=== PATIENT | male | born 1935 | race African-American/Black ===

== ENCOUNTER 2016-12-07 15:28 | Inpatient (IN) ==
--- NOTE | 2016-12-07 15:53 | Emergency Department Note ---
Disposition Clinical Impression: Healthcare-associated pneumonia, Lactic acidosis, Severe sepsis Altered mental status Qualifiers: Altered mental status type: unspecified Qualified Code(s): R41.82 - Altered mental status, unspecified Disposition: Admitted As Inpatient Condition: Fair Referrals: NONE,PCP [Non-Partnered Physician] - Forms: ED Satisfaction Letter Altered Mental Status HPI - General Chief Complaint: ED Altered Mental Status Stated Complaint: unresponsive/AMS LKW 1130 Time Seen by Provider: 12/07/16 15:34 Source: family, EMS Mode of arrival: EMS Limitations: altered mental status Nursing Notes Reviewed: Yes Vital Signs Reviewed: Yes - History of Present Illness HPI Narrative: 81-year-old male history of lung, liver and brain lesions who presents to the ER due to altered mental status. Family reports that he was in his usual state of health this morning. States that after they had breakfast, or speaking that he became less responsive and was unable to help himself out of his wheelchair. She reports that he took Tylenol and something for hiccups prior to this happening. No recent illnesses. He was seen at the [facility] and treated with radiation for his brain lesion most recently last . No recent fevers. No nausea vomiting or diarrhea. No other complaints. MD complaint: altered mental status Onset (ago): hour(s) Pain Severity: none Context: liver disease, other (Lung mass) Associated symptoms: Reports: other (Unable to assess) - Related Data Home Medications Medication Instructions Recorded Confirmed Cholecalciferol (D-3) [Vitamin D] 1,000 unit PO DAILY 10/11/16 12/07/16 Cyanocobalamin (Vitamin B-12) 1,000 mcg PO DAILY 10/11/16 12/07/16 [Vitamin B12] Fexofenadine HCl 60 mg PO DAILY 10/11/16 12/07/16 Fluticasone/Salmeterol [Advair 1 puff IH BID 10/11/16 12/07/16 500-50 Diskus] Montelukast [Singulair] 10 mg PO DAILY 10/11/16 12/07/16 Acetaminophen [Tylenol] 650 mg PO Q6HR PRN 12/07/16 12/07/16 Baclofen [Lioresal] 5 mg PO Q8H PRN 12/07/16 12/07/16 Dexamethasone [Decadron] 8 mg PO TID 12/07/16 12/07/16 Docusate [Colace] 100 mg PO BID 12/07/16 12/07/16 Mag Hydrox/Al Hydrox/Simeth 30 ml PO Q6H PRN 12/07/16 12/07/16 [Antacid Suspension] Naproxen [Naprosyn] 500 mg PO BID 12/07/16 12/07/16 Pantoprazole Sodium [Protonix] 40 mg PO BID 12/07/16 12/07/16 levETIRAcetam [Keppra Oral Soln] 500 mg PO BID 12/07/16 12/07/16 Allergies Allergy/AdvReac Type Severity Reaction Status Date / Time venom-honey bee Allergy Swelling Verified 12/07/16 15:49 [bee venom (honey bee)] of the Eye Limitations: ROS unobtainable due to patients medical condition Past Medical History - Past Medical History Attestation: Yes The following information was validated with the patient. Source: old records reviewed, obtained from family Medical history: Reports: asthma, cancer Psychiatric history: Reports: no psych history - Social History Smoking Status: Never smoker Smokeless Tobacco Status: No Alcohol use: Reports: none Drug use: Reports: none Physical Exam - General Limitations: altered mental status General appearance: alert, other - Head Head exam: atraumatic, normocephalic, normal inspection - Eye Eye exam: Present: normal appearance, PERRL - ENT ENT exam: normal exam - Neck Neck exam: Present: normal inspection - Chest Chest inspection: Present: normal inspection, symmetric chest wall rise - Respiratory Respiratory exam: Present: normal lung sounds bilaterally - Cardiovascular Cardiovascular exam: Present: normal rhythm, tachycardia, normal heart sounds - Abdominal Exam Abdominal exam: Present: soft, Non-Tender. Absent: tenderness, distention, rigidity - Extremities Exam Extremities exam: Present: normal inspection, full ROM - Expanded Upper Extremity Exam Shoulder exam: Present: normal inspection, full ROM Arm exam: Present: normal inspection, full ROM Elbow exam: Present: normal inspection, full ROM Forearm/Wrist exam: Present: normal inspection, full ROM Hand exam: Present: normal inspection, full ROM Vascular exam: Normal: radial pulse - Expanded Lower Extremity Exam Hip/Pelvis exam: Present: normal inspection, full ROM Upper leg exam: Present: normal inspection, full ROM Knee exam: Present: normal inspection, full ROM Lower leg exam: Present: normal inspection, full ROM Ankle exam: Present: normal inspection Foot/toe exam: Present: normal inspection Neurovascular/Tendon exam: Absent: motor deficit, sensory deficit - Neurological Exam Neurological exam: Present: alert, other (Patient opens his eyes to voice. Decreased range of motion to the lower extremities. He is able to wiggle his toes and squeeze with his hands. Exam is limited due to patient compliance.) - Expanded Neurological Exam Motor strength - LUE: 4/5 Motor strength - RUE: 4/5 Motor strength - LLE: 4/5 Motor strength - RLE: 4/5 Coma Scale Eye Opening: To Voice Coma Scale Motor Response: Localizes to Pain Coma Scale Verbal Response: Incomprehensible Coma Scale Total: 10 - Skin Skin exam: Present: warm, dry, intact, normal color Course Course Narrative: Patient seen and examined. Vital signs reviewed. He is tachycardic here in the 120s. We will obtain a CT scan of the head as well as EKG, chest x-ray, labs and urinalysis. We will also check an ammonia level for his prior liver mass. - Reevaluation(s) Reevaluation #1: I discussed results of imaging and lab work to date with the patient and family. I discussed the findings of pneumonia and that he will require inpatient management for IV antibiotics and IV fluids. Family requests to stay here at this time. I also discussed with his significant other about CODE STATUS and she reports that she has had an extensive talk with him and that he is DNR, DNI. She reports that they do not want any heroic measures. Vital Signs Temperature 97.9 F 12/07/16 15:37 Pulse Rate 122 12/07/16 15:37 Respiratory Rate 26 12/07/16 15:37 Blood Pressure 151/76 12/07/16 15:37 O2 Sat by Pulse Oximetry 100 12/07/16 15:37 Temperature 97.9 F 12/07/16 15:37 Pulse Rate 109 12/07/16 18:00 Respiratory Rate 28 12/07/16 18:00 Blood Pressure 131/67 12/07/16 18:00 O2 Sat by Pulse Oximetry 100 12/07/16 18:00 Oxygen Delivery Oxygen Delivery Nasal Cannula Altered Mental Status - MDM Narrative Medical decision making narrative: 81-year-old male presents to the ER due to altered mental status. Reports that worsen this morning. He has a history of lung, liver and brain cancer. He has a GCS of 10 here. He was initially tachycardic which improved with IV fluids. Chest x-ray demonstrates a new right lower lobe pneumonia. He was hospitalized within the last 60 days and meets healthcare associated pneumonia criteria. His lactate is elevated at 5.3. White count is over 20. Patient given 2 L of IV fluids here as well as coverage including vancomycin, Zosyn and Levaquin. Patient is admitted to the hospitalist service for further management. I examined this patient and my medical decision-making was reviewed with the Resident Physician. I agree with the documented findings, disposition and treatment plan as described except to the extent set forth below. Patient seen and evaluated on arrival with EMS and Dr. Villegas, I agree with his evaluation and management plan, supravascular the patient's stay. Patient comes in with altered mental status. From nursing facility. 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 Waiting on family to arrival review his medical records he is not able to give us any history. He is very somnolent. His pupils are not small. I did do a workup CT of his head then reassess. Speak with family and review through his medical chart. He has no focal deficits here his GCS is 12. Patient's labs are coming back he has a leukocytosis lactic acid is high. I do not know where his source of infection may be or if this is truly septic or not pertinent treat him as such. At on a second lactic acid second fluid bolus and started him on IV antibiotics for unknown source of infection. Chest X-Ray 12/07/16 15:47 IMPRESSION: Stable right upper lobe mass is again noted. New patchy opacity in the right base, suspicious for pneumonia. There may be a parapneumonic effusion as well. Fullness of right hilum, possible adenopathy. D/ / Frantz St MD / Frantz St MD Interpreting Provider: Frantz St MD Chest X-Ray 12/07/16 15:47 IMPRESSION: Stable right upper lobe mass is again noted. New patchy opacity in the right base, suspicious for pneumonia. There may be a parapneumonic effusion as well. Fullness of right hilum, possible adenopathy. D/ / Frantz St MD / Frantz St MD Interpreting Provider: Frantz St MD Head CT 12/07/16 15:47 IMPRESSION: No acute intracranial abnormality. D/ / Angeli Samano Cha, MD / Angeli Samano Cha, MD Interpreting Provider: Angeli Samano Cha, MD 1734 hrs.: We started him on antibiotics for new pneumonia. He does. His labs to be septic. Repeat fluids lactic acid and admission. Nascimento catheter placed for her urinary collection. Patient be admitted. Family is in agreement with plan. Critical care time exclusive of separately billable procedures is 40 minutes. - Lab Data Lab results reviewed: Yes I reviewed the patient's lab results. Result diagrams: 12/07/16 16:28 12/07/16 16:28 Lab Results 12/07/16 12/07/16 12/07/16 Range/Units 15:56 16:28 16:28 WBC 23.0 H (4.3-11.1) K/mcL RBC 4.23 (4.19-5.50) M/mcL Hgb 12.1 L (12.9-16.9) g/dL Hct 37.8 (37.5-50.1) % MCV 89.4 (83.0-100.0) fL MCH 28.6 (28.0-33.3) pg MCHC 32.0 (31.6-35.5) g/dL RDW 16.4 H (11.5-14.5) % Plt Count 110 L (140-400) K/mcL MPV 11.4 (9.4-12.4) fL Immature Gran % 1.2 (0-4) % Seg Neutrophils % 89.7 % Lymphocytes % 1.7 % Monocytes % 7.3 % Eosinophils % 0.0 % Basophils % 0.1 % Neutrophils # 20.6 H (1.6-8.9) K/mcL Lymphocytes # 0.4 L (0.6-4.6) K/mcL Monocytes # 1.7 H (0.0-1.3) K/mcL Eosinophils # 0.0 (0.0-0.6) K/mcL Basophils # 0.0 (0.0-0.2) K/mcL Sodium 137 (136-145) mEq/L Potassium 4.5 (3.5-4.5) mEq/L Chloride 104 (98-109) mEq/L Carbon Dioxide 19 (19-29) mEq/L BUN 35 H (8-26) mg/dL Creatinine 1.06 (0.72-1.25) mg/dL Est GFR ( Amer) > 60 (> 60) Est GFR (Non-Af Amer) > 60 (> 60) BUN/Creatinine Ratio 33 H (6-26) Glucose 131 H (70-99) mg/dL POC Glucose 138 H (58-89) Calculated Osmolality 294 (280-300) Lactic Acid (0.5-2.2) mmol/L Calcium 9.6 (8.6-10.8) mg/dL Phosphorus 2.3 (2.3-4.7) mg/dL Magnesium 1.8 (1.6-2.6) mg/dL Total Bilirubin 0.7 (0.2-1.2) mg/dL Direct Bilirubin 0.4 (0.0-0.5) mg/dL Indirect Bilirubin 0.3 (0.0-1.2) mg/dL AST 92 H (5-34) Units/L ALT 27 (0-55) Units/L Alkaline Phosphatase 143 H (38-126) Units/L Ammonia (18-72) mcmol/L Troponin I (0-0.03) ng/mL Serum Total Protein 6.5 (6.0-8.3) g/dL Albumin 2.5 L (3.5-5.0) g/dL Globulin 4.0 H (2.4-3.5) g/dL Albumin/Globulin Ratio 0.6 L (1.1-2.2) TSH 2.782 (0.350-4.840) mcIU/mL Urine Color (Yellow) Urine Clarity (Clear) Urine pH (5.0-8.0) pH Units Ur Specific [place] (1.010-1.025) Urine Protein (Neg-Trace) mg/dL Urine Glucose (UA) (Normal) mg/dL Urine Ketones (Negative) mg/dL Urine Blood (Negative) Urine Nitrite (Negative) Urine Bilirubin (Negative) Urine Urobilinogen (Normal) mg/dL Ur Leukocyte Esterase (Negative) Urine Opiates Screen (Qjajep=659) ng/mL Ur Barbiturates Screen (Zxzipd=422) ng/mL Ur Phencyclidine Scrn (Cutoff=25) ng/mL Ur Amphetamines Screen (Uljbfg=0241) ng/mL U Benzodiazepines Scrn (Rabrgx=608) ng/mL Urine Cocaine Screen (Cutoff= 300) ng/mL U Marijuana (THC) Screen (Cutoff = 50) ng/mL 12/07/16 12/07/16 12/07/16 Range/Units 16:28 16:28 16:28 WBC (4.3-11.1) K/mcL RBC (4.19-5.50) M/mcL Hgb (12.9-16.9) g/dL Hct (37.5-50.1) % MCV (83.0-100.0) fL MCH (28.0-33.3) pg MCHC (31.6-35.5) g/dL RDW (11.5-14.5) % Plt Count (140-400) K/mcL MPV (9.4-12.4) fL Immature Gran % (0-4) % Seg Neutrophils % % Lymphocytes % % Monocytes % % Eosinophils % % Basophils % % Neutrophils # (1.6-8.9) K/mcL Lymphocytes # (0.6-4.6) K/mcL Monocytes # (0.0-1.3) K/mcL Eosinophils # (0.0-0.6) K/mcL Basophils # (0.0-0.2) K/mcL Sodium (136-145) mEq/L Potassium (3.5-4.5) mEq/L Chloride (98-109) mEq/L Carbon Dioxide (19-29) mEq/L BUN (8-26) mg/dL Creatinine (0.72-1.25) mg/dL Est GFR ( Amer) (> 60) Est GFR (Non-Af Amer) (> 60) BUN/Creatinine Ratio (6-26) Glucose (70-99) mg/dL POC Glucose (58-89) Calculated Osmolality (280-300) Lactic Acid 5.3 H* (0.5-2.2) mmol/L Calcium (8.6-10.8) mg/dL Phosphorus (2.3-4.7) mg/dL Magnesium (1.6-2.6) mg/dL Total Bilirubin (0.2-1.2) mg/dL Direct Bilirubin (0.0-0.5) mg/dL Indirect Bilirubin (0.0-1.2) mg/dL AST (5-34) Units/L ALT (0-55) Units/L Alkaline Phosphatase (38-126) Units/L Ammonia 24 (18-72) mcmol/L Troponin I 0.03 (0-0.03) ng/mL Serum Total Protein (6.0-8.3) g/dL Albumin (3.5-5.0) g/dL Globulin (2.4-3.5) g/dL Albumin/Globulin Ratio (1.1-2.2) TSH (0.350-4.840) mcIU/mL Urine Color (Yellow) Urine Clarity (Clear) Urine pH (5.0-8.0) pH Units Ur Specific [place] (1.010-1.025) Urine Protein (Neg-Trace) mg/dL Urine Glucose (UA) (Normal) mg/dL Urine Ketones (Negative) mg/dL Urine Blood (Negative) Urine Nitrite (Negative) Urine Bilirubin (Negative) Urine Urobilinogen (Normal) mg/dL Ur Leukocyte Esterase (Negative) Urine Opiates Screen (Xmvyma=513) ng/mL Ur Barbiturates Screen ([place]=575) ng/mL Ur Phencyclidine Scrn (Cutoff=25) ng/mL Ur Amphetamines Screen (Xlswsk=5645) ng/mL U Benzodiazepines Scrn (Xdahbx=626) ng/mL Urine Cocaine Screen (Cutoff= 300) ng/mL U Marijuana (THC) Screen (Cutoff = 50) ng/mL 12/07/16 12/07/16 Range/Units 17:53 17:53 WBC (4.3-11.1) K/mcL RBC (4.19-5.50) M/mcL Hgb (12.9-16.9) g/dL Hct (37.5-50.1) % MCV (83.0-100.0) fL MCH (28.0-33.3) pg MCHC (31.6-35.5) g/dL RDW (11.5-14.5) % Plt Count (140-400) K/mcL MPV (9.4-12.4) fL Immature Gran % (0-4) % Seg Neutrophils % % Lymphocytes % % Monocytes % % Eosinophils % % Basophils % % Neutrophils # (1.6-8.9) K/mcL Lymphocytes # (0.6-4.6) K/mcL Monocytes # (0.0-1.3) K/mcL Eosinophils # (0.0-0.6) K/mcL Basophils # (0.0-0.2) K/mcL Sodium (136-145) mEq/L Potassium (3.5-4.5) mEq/L Chloride (98-109) mEq/L Carbon Dioxide (19-29) mEq/L BUN (8-26) mg/dL Creatinine (0.72-1.25) mg/dL Est GFR ( Amer) (> 60) Est GFR (Non-Af Amer) (> 60) BUN/Creatinine Ratio (6-26) Glucose (70-99) mg/dL POC Glucose (58-89) Calculated Osmolality (280-300) Lactic Acid (0.5-2.2) mmol/L Calcium (8.6-10.8) mg/dL Phosphorus (2.3-4.7) mg/dL Magnesium (1.6-2.6) mg/dL Total Bilirubin (0.2-1.2) mg/dL Direct Bilirubin (0.0-0.5) mg/dL Indirect Bilirubin (0.0-1.2) mg/dL AST (5-34) Units/L ALT (0-55) Units/L Alkaline Phosphatase (38-126) Units/L Ammonia (18-72) mcmol/L Troponin I (0-0.03) ng/mL Serum Total Protein (6.0-8.3) g/dL Albumin (3.5-5.0) g/dL Globulin (2.4-3.5) g/dL Albumin/Globulin Ratio (1.1-2.2) TSH (0.350-4.840) mcIU/mL Urine Color Dark Yellow (Yellow) Urine Clarity Clear (Clear) Urine pH 5.5 (5.0-8.0) pH Units Ur Specific [place] 1.026 H (1.010-1.025) Urine Protein 30 H (Neg-Trace) mg/dL Urine Glucose (UA) Normal (Normal) mg/dL Urine Ketones Negative (Negative) mg/dL Urine Blood Moderate H (Negative) Urine Nitrite Negative (Negative) Urine Bilirubin Negative (Negative) Urine Urobilinogen Normal (Normal) mg/dL Ur Leukocyte Esterase Negative (Negative) Urine Opiates Screen Negative (Lymcll=491) ng/mL Ur Barbiturates Screen Negative (Sftaqo=101) ng/mL Ur Phencyclidine Scrn Negative (Cutoff=25) ng/mL Ur Amphetamines Screen Negative (Fmxdtl=0515) ng/mL U Benzodiazepines Scrn Negative (Deoiwz=524) ng/mL Urine Cocaine Screen Negative (Cutoff= 300) ng/mL U Marijuana (THC) Screen Negative (Cutoff = 50) ng/mL - Radiology Data Radiology results reviewed: Yes I reviewed the patient's radiology results. Chest X-Ray 12/07/16 15:47 IMPRESSION: Stable right upper lobe mass is again noted. New patchy opacity in the right base, suspicious for pneumonia. There may be a parapneumonic effusion as well. Fullness of right hilum, possible adenopathy. D/ / Frantz St MD / Frantz St MD Interpreting Provider: Frantz St MD Head CT 12/07/16 15:47 IMPRESSION: No acute intracranial abnormality. D/ / Angeli Samano Cha, MD / Angeli Samano Cha, MD Interpreting Provider: Angeli Samano Cha, MD - EKG Data EKG attestation: Yes I reviewed and interpreted this EKG. EKG results narrative: EKG demonstrates sinus tachycardia with a rate of 120. Normal axis. Normal intervals. There is [address] depression in the lateral leads V4 through V6. No gross ST elevations. Changes from previous EKG on 10/11/[address] depression in lateral leads. TPA Checklist - LKW: 3-4.5 hrs Add. Warnings/Precautions Patient/family understanding: The patient/family members have been counseled and understood the risk, benefit , and alternatives of treatment. S.Rosa - Shashi Situation: Demographics, MOA Background: Presenting Complaint, Relevant PMH, Meds, & Allergies Assessment: Vital Signs, Course and respsone to treatment, Exam Concerns, Patient/Family Expectation, Pertinant Lab Results, Outstanding Labs Recommendation: Barrier(s) to disposition, Recommendation based on pending studies, treatments, or consults S.Rosa Report Given to: Pk Danielle Repor Time: 18:22
[2016-12-07] MEDS ORDERED: 0.9 % Sodium Chloride 1,000 ML IVC ONE ×2 (15:59→17:00)
[2016-12-07 16:50] LABS: Basophils % 0.1 %; Hematocrit 37.8 % (37.5-50.1); Hemoglobin 12.1 g/dL (12.9-16.9); Immature Granulocytes % 1.2 % (0-4); Lymphocytes # 0.4 K/mcL (0.6-4.6); Lymphocytes % 1.7 %; Mean Corpuscular Hemoglobin 28.6 pg (28.0-33.3); Mean Corpuscular Volume 89.4 fL (83.0-100.0); Mean Platelet Volume 11.4 fL (9.4-12.4); Monocytes # 1.7 K/mcL (0.0-1.3); Monocytes % 7.3 %; Neutrophils # 20.6 K/mcL (1.6-8.9); Platelet Count 110 K/mcL (140-400); Red Blood Count 4.23 M/mcL (4.19-5.50); Red Cell Distribution Width 16.4 % (11.5-14.5); Segmented Neutrophils % 89.7 %
[2016-12-07] MEDS ORDERED: Vancomycin 1,000 MG in D5% in Water 250 ML IVPB ONE ×2 (17:00→17:08)
[2016-12-07] MEDS ORDERED: Piperacillin/Tazobactam 3.375 GM in D5% in Water (Mini-Bag+) 100 ML IVPB ONE (17:00)
[2016-12-07 17:09] LABS: Alanine Aminotransferase 27 Units/L (0-55); Albumin 2.5 g/dL (3.5-5.0); Albumin/Globulin Ratio 0.6 (1.1-2.2); Alkaline Phosphatase 143 Units/L (38-126); Aspartate Amino Transferase 92 Units/L (5-34); BUN/Creatinine Ratio 33 (6-26); Bilirubin,Direct 0.4 mg/dL (0.0-0.5); Bilirubin,Indirect 0.3 mg/dL (0.0-1.2); Bilirubin,Total 0.7 mg/dL (0.2-1.2); Blood Urea Nitrogen 35 mg/dL (8-26); Calcium 9.6 mg/dL (8.6-10.8); Carbon Dioxide 19 mEq/L (19-29); Chloride 104 mEq/L (98-109); Glucose 131 mg/dL (70-99); Osmolality,Calculated 294 (280-300); Potassium 4.5 mEq/L (3.5-4.5); Sodium 137 mEq/L (136-145); Total Protein 6.5 g/dL (6.0-8.3); eGFR For African Americans > 60 (> 60); eGFR For Non-African Americans > 60 (> 60)
[2016-12-07] MEDS ORDERED: Levofloxacin 750 MG/150 ML 750 MG/150 ML BAG IVPB ONE (17:13)
[2016-12-07 17:42] LABS: Thyroid Stimulating Hormone 2.782 mcIU/mL (0.350-4.840)
[2016-12-07 17:54] LABS: Magnesium 1.8 mg/dL (1.6-2.6); Phosphorous 2.3 mg/dL (2.3-4.7)
[2016-12-07 18:03] LABS: Bilirubin,Urine Negative (Negative); Blood,Urine Moderate (Negative); Clarity,Urine Clear (Clear); Color,Urine Dark Yellow (Yellow); Glucose,Urine (UA) Normal (Normal); Ketones,Urine Negative (Negative); Leukocyte Esterase,Urine Negative (Negative); Nitrite,Urine Negative (Negative); PH,Urine 5.5 pH Units (5.0-8.0); Protein,Urine 30 mg/dL (Neg-Trace); Specific Gravity,Urine 1.026 (1.010-1.025); Urobilinogen,Urine Normal (Normal)
[2016-12-07 18:05] LABS: Bacteria,Urine None Seen per hpf (None-Few); RBC,Urine 30-50 per hpf (0-3); Squamous Epithelial Cell,Urine Many per lpf (None-Few)
[2016-12-07 18:08] LABS: Amphetamine Screen,Urine Negative ng/mL (Cutoff=1000); Barbiturate Screen,Urine Negative ng/mL (Cutoff=200); Benzodiazepines Screen,Urine Negative ng/mL (Cutoff=200); Cannabinoid Screen,Urine Negative ng/mL (Cutoff = 50); Cocaine Screen,Urine Negative ng/mL (Cutoff= 300); Opiate Screen,Urine Negative ng/mL (Cutoff=300); Phencyclidine Screen,Urine Negative ng/mL (Cutoff=25)
[2016-12-07 18:18] LABS: Renal Epithelial Cells,Urine Few per hpf (None-Few)
[2016-12-07 18:19] LABS: Hyaline Casts,Urine Few per lpf (None-Few)
[2016-12-07] MEDS ORDERED: Baclofen 10 MG TABLET PO PRN (21:53)
[2016-12-07] MEDS ORDERED: Naloxone 0.4 MG/ML INJ IVP PRN (21:58)
[2016-12-07] MEDS ORDERED: Vancomycin 0 MG in D5% in Water 250 ML IVPB SCH (22:00)
--- NOTE | 2016-12-07 22:05 | Internal Med History&Physical ---
Date of Encounter: 12/07/16 Time of Encounter: 22:02 Assessment and Plan (1) Healthcare-associated pneumonia Current visit: Yes Status: Acute empiric IV vanc -pharmacy to dose, cefepime, IVF, blood cx, urine cx pend (2) Altered mental status Current visit: Yes Status: Acute related to severe sepsis and recent radiation to brain Qualifiers: Altered mental status type: unspecified Qualified Code(s): R41.82 - Altered mental status, unspecified (3) Lactic acidosis Current visit: Yes Status: Acute related to sepsis. Sepsis directed management (4) Severe sepsis Current visit: Yes Status: Acute (5) Metastatic cancer Current visit: Yes Status: Acute seen at [facility], recent XRT to brain (unsure of WBRT vs SRS), probably WBRT ? Slow dex taper Internal Medicine - H&P: HPI Chief complaint: AMS Admitted From: Home History of present illness: Mr. Belle is a 81 year old male who was recently dx with metastatic cancer ( unknown primary) who presents with sepsis resulting in AMS D/w case with ER who reported that per patient is DNR/DNI. It was reported that he had been recently dx with metastatic cancer to the lung , liver and brain and had been worked up and treated at [facility]. He recently completed palliative XRT to the brain last and had been on dex taper. He presents with acute AMS, decreased response today which led to his visit the ED. Sepsis screen suspicious for PNA and possible but less probable UTI as the primary source. EKG reviewed by self with rate 129, sinus tachycardia with PVC CT/CT head/brain wo con IMPRESSION: No acute intracranial abnormality. XR/XR chest 1V portable IMPRESSION: Stable right upper lobe mass is again noted. New patchy opacity in the right base, suspicious for pneumonia. There may be a parapneumonic effusion as well. Fullness of right hilum, possible adenopathy. Past Med Surg Social Fam HX - Past Medical History Medical history: asthma, cancer Psychiatric history: no psych history - Social History Smoking Status: Never smoker Smokeless Tobacco Status: No Alcohol use: none Drug use: none - Additional Family History Additional family history: HTN Internal Medicine - H&P: Meds Cholecalciferol (D-3) [Vitamin D] 1,000 unit PO DAILY 10/11/16 [History] Cyanocobalamin (Vitamin B-12) [Vitamin B12] 1,000 mcg PO DAILY 10/11/16 [History ] Fexofenadine HCl 60 mg PO DAILY 10/11/16 [History] Fluticasone/Salmeterol [Advair 500-50 Diskus] 1 puff IH BID 10/11/16 [History] Montelukast [Singulair] 10 mg PO DAILY 10/11/16 [History] Acetaminophen [Tylenol] 650 mg PO Q6HR PRN 12/07/16 [History] Baclofen [Lioresal] 5 mg PO Q8H PRN 12/07/16 [History] Dexamethasone [Decadron] 8 mg PO TID 12/07/16 [History] Docusate [Colace] 100 mg PO BID 12/07/16 [History] Mag Hydrox/Al Hydrox/Simeth [Antacid Suspension] 30 ml PO Q6H PRN 12/07/16 [ History] Naproxen [Naprosyn] 500 mg PO BID 12/07/16 [History] Pantoprazole Sodium [Protonix] 40 mg PO BID 12/07/16 [History] levETIRAcetam [Keppra Oral Soln] 500 mg PO BID 12/07/16 [History] 3 Allergy/AdvReac Type Severity Reaction Status Date / Time venom-honey bee Allergy Swelling Verified 12/07/16 15:49 [bee venom (honey bee)] of the Eye All Systems PM: A 10-system review of systems was performed and is negative for pertinent findings except as documented above in the HPI. Review of systems: ROS 14 point review of systems reviewed as best as possible given presentation. Pertinent positive or negative as per HPI or otherwise reviewed as negative - Constitutional Vitals: Temp Pulse Resp BP Pulse Ox 99.2 F 95 19 157/74 100 12/07/16 20:13 12/07/16 20:13 12/07/16 20:13 12/07/16 20:13 12/07/16 20:13 Internal Med - H&P Results - Labs CBC & Chem 7: 12/07/16 16:28 12/07/16 16:28
[2016-12-07] MEDS: 0.9 % Sodium Chloride 1,000 ML IVC SCH (23:25)
[2016-12-08] MEDS: *HR* Enoxaparin 30 MG/0.3 ML SYRINGE SQ SCH (05:25)
[2016-12-08] MEDS: Vancomycin 1,000 MG in D5% in Water 250 ML IVPB SCH ×2 (05:25→17:11)
[2016-12-08] MEDS: Cefepime HCl 2,000 MG in D5% in Water (Mini-Bag+) 100 ML IVPB SCH ×2 (05:25→17:10)
[2016-12-08] MEDS: Pantoprazole 40 MG VIAL IVP SCH (05:26)
[2016-12-08] MEDS: 0.9 % Sodium Chloride 1,000 ML IVC SCH ×2 (08:24→18:37)
[2016-12-08] MEDS: Dexamethasone 4 MG/ML VIAL IVP SCH ×2 (08:30→20:33)
[2016-12-08] MEDS ORDERED: levETIRAcetam 500 MG/5 ML UDC PO SCH (09:00)
[2016-12-08 09:03] LABS: Basophils % 0.1 %; Mean Corpuscular Volume 88.8 fL (83.0-100.0); Red Cell Distribution Width 16.3 % (11.5-14.5)
[2016-12-08 09:05] LABS: Eosinophils % 0.1 %; Hematocrit 27.8 % (37.5-50.1); Immature Platelets 1.7 % (1.1-6.1); Lymphocytes # 0.3 K/mcL (0.6-4.6); Lymphocytes % 2.2 %; Mean Corpuscular HGB Conc 31.3 g/dL (31.6-35.5); Mean Corpuscular Hemoglobin 27.8 pg (28.0-33.3); Mean Platelet Volume 10.7 fL (9.4-12.4); Monocytes # 1.4 K/mcL (0.0-1.3); Monocytes % 9.5 %; Neutrophils # 13.2 K/mcL (1.6-8.9); Red Blood Count 3.13 M/mcL (4.19-5.50); Segmented Neutrophils % 87.1 %
[2016-12-08 09:09] LABS: Platelet Count 70 K/mcL (140-400)
[2016-12-08 09:17] LABS: Alanine Aminotransferase 20 Units/L (0-55); Albumin/Globulin Ratio 0.6 (1.1-2.2); Alkaline Phosphatase 113 Units/L (38-126); Aspartate Amino Transferase 70 Units/L (5-34); BUN/Creatinine Ratio 27 (6-26); Bilirubin,Direct 0.5 mg/dL (0.0-0.5); Bilirubin,Indirect 0.4 mg/dL (0.0-1.2); Bilirubin,Total 0.9 mg/dL (0.2-1.2); Calcium 8.2 mg/dL (8.6-10.8); Carbon Dioxide 23 mEq/L (19-29); Chloride 105 mEq/L (98-109); Glucose 90 mg/dL (70-99); Hemoglobin 8.7 g/dL (12.9-16.9); Magnesium 1.3 mg/dL (1.6-2.6); Osmolality,Calculated 283 (280-300); Sodium 135 mEq/L (136-145); eGFR For African Americans > 60 (> 60); eGFR For Non-African Americans > 60 (> 60)
[2016-12-08 09:18] LABS: Albumin 1.9 g/dL (3.5-5.0); Blood Urea Nitrogen 22 mg/dL (8-26); Total Protein 4.9 g/dL (6.0-8.3)
[2016-12-08 09:36] LABS: Anisocytosis 1+ (Not Present); Platelet Estimate Decreased (Normal)
--- NOTE | 2016-12-08 11:40 | Internal Med Progress Note ---
Date of Encounter: 12/08/16 Time of Encounter: 11:15 - Assessment and plan (1) Pneumonia Current Visit: Yes Status: Suspected Assessment and plan: Patient with healthcare associated pneumonia. Treating with cefepime and vancomycin. Will get CT scan of the chest with contrast to better evaluate the pleural effusion. Continue to monitor vital signs. Follow culture results. Continue current antibiotics. High risk for complications due to underlying comorbidities. Qualifiers: Pneumonia type: due to other aerobic Gram-negative bacteria Laterality: right Lung location: lower lobe of lung Qualified Code(s): J15.6 - Pneumonia due to other aerobic Gram-negative bacteria (2) Healthcare-associated pneumonia Current Visit: Yes Status: Acute (3) Altered mental status Current Visit: Yes Status: Acute Assessment and plan: Improving. Likely related to healthcare associated pneumonia and recent radiation to brain. Qualifiers: Altered mental status type: delirium Qualified Code(s): R41.0 - Disorientation, unspecified (4) Lactic acidosis Current Visit: Yes Status: Resolved Assessment and plan: From sepsis and pneumonia. This has now resolved (5) Severe sepsis Current Visit: Yes Status: Acute Assessment and plan: From pneumonia. Improving clinically. WBC count is getting better. We will continue IV antibiotics. Lactic acidosis is resolved. Blood pressures remained good. (6) Metastatic cancer Current Visit: Yes Status: Chronic Assessment and plan: Metastatic cancer with unknown primary. Follow up outpatient with oncology - Subjective Interval history: Patient appears comfortable and is lying in bed. Awake and alert. Feels tired but denies any shortness of breath or chest pain. Has not had fever this morning. No new complaints at this time. - Constitutional Vitals: Temp Pulse Resp BP Pulse Ox 98.3 F 94 18 142/72 100 12/08/16 11:10 12/08/16 11:10 12/08/16 11:10 12/08/16 11:10 12/08/16 11:10 General appearance: Present: cooperative, A&O X 3, answers questions appropriately - Neck Neck exam general surgery: Present: supple, trachea midline. Absent: lymphadenopathy - Respiratory Respiratory exam: Present: decreased breath sounds (Right base). Absent: accessory muscle use, rales, rhonchi, wheezes - Cardiovascular Cardiovascular exam: Present: RRR, +S1, +S2. Absent: diastolic murmur, gallop, rubs, systolic murmur - GI/Abdominal GI/Abdominal exam: Present: normal bowel sounds, soft, no peritoneal signs. Absent: distended, tenderness - Extremities Exam Extremities exam: Present: warm, radial pulses palpable and symmetrical. Absent : calf tenderness, cyanotic, pedal edema - Skin Skin exam: Present: dry, intact Internal Medicine: Result - Labs CBC & Chem 7: 12/08/16 08:40 12/08/16 08:40 Labs: Short CBC 12/08/16 Range/Units 08:40 WBC 15.1 H (4.3-11.1) K/mcL Hgb 8.7 L D (12.9-16.9) g/dL Hct 27.8 L (37.5-50.1) % Plt Count 70 L (140-400) K/mcL Neutrophils # 13.2 H (1.6-8.9) K/mcL BMP 12/08/16 08:40 Sodium 135 L Potassium 4.0 Chloride 105 Carbon Dioxide 23 BUN 22 D Creatinine 0.82 Glucose 90 Calcium 8.2 L Liver Function 12/08/16 Range/Units 08:40 Total Bilirubin 0.9 (0.2-1.2) mg/dL Direct Bilirubin 0.5 (0.0-0.5) mg/dL AST 70 H (5-34) Units/L ALT 20 (0-55) Units/L Alkaline Phosphatase 113 (38-126) Units/L Albumin 1.9 L D (3.5-5.0) g/dL Consult Discharge Plan - Plan Referrals: Diana Coffey MD [Primary Care Provider] -
[2016-12-08] MEDS: Acetaminophen 325 MG TABLET PO PRN (18:43)
[2016-12-09] MEDS: 0.9 % Sodium Chloride 1,000 ML IVC SCH ×2 (01:21→13:54)
[2016-12-09 04:58] LABS: Immature Granulocytes % 0.7 % (0-4); Lymphocytes % 1.4 %
[2016-12-09 05:00] LABS: Basophils % 0.1 %; Hematocrit 28.4 % (37.5-50.1); Hemoglobin 8.8 g/dL (12.9-16.9); Immature Platelets 2.3 % (1.1-6.1); Lymphocytes # 0.2 K/mcL (0.6-4.6); Mean Corpuscular Hemoglobin 27.5 pg (28.0-33.3); Mean Corpuscular Volume 88.8 fL (83.0-100.0); Mean Platelet Volume 10.9 fL (9.4-12.4); Monocytes % 3.7 %; Neutrophils # 13.8 K/mcL (1.6-8.9); Segmented Neutrophils % 94.1 %
[2016-12-09 05:01] LABS: Monocytes # 0.5 K/mcL (0.0-1.3)
[2016-12-09 05:02] LABS: INR 1.8; Platelet Count 84 K/mcL (140-400); Prothrombin Time 20.1 Seconds (9.4-12.1)
[2016-12-09 05:14] LABS: Alanine Aminotransferase 20 Units/L (0-55); Albumin/Globulin Ratio 0.6 (1.1-2.2); Alkaline Phosphatase 116 Units/L (38-126); Aspartate Amino Transferase 50 Units/L (5-34); BUN/Creatinine Ratio 28 (6-26); Bilirubin,Direct 0.4 mg/dL (0.0-0.5); Bilirubin,Indirect 0.2 mg/dL (0.0-1.2); Bilirubin,Total 0.6 mg/dL (0.2-1.2); Blood Urea Nitrogen 26 mg/dL (8-26); Calcium 8.4 mg/dL (8.6-10.8); Carbon Dioxide 19 mEq/L (19-29); Chloride 107 mEq/L (98-109); Globulin 3.4 g/dL (2.4-3.5); Glucose 110 mg/dL (70-99); Magnesium 1.6 mg/dL (1.6-2.6); Osmolality,Calculated 287 (280-300); Potassium 4.4 mEq/L (3.5-4.5); Sodium 136 mEq/L (136-145); Total Protein 5.3 g/dL (6.0-8.3); eGFR For African Americans > 60 (> 60); eGFR For Non-African Americans > 60 (> 60)
[2016-12-09 05:18] LABS: Albumin 1.9 g/dL (3.5-5.0)
[2016-12-09] MEDS: Cefepime HCl 2,000 MG in D5% in Water (Mini-Bag+) 100 ML IVPB SCH ×2 (05:42→17:18)
[2016-12-09] MEDS: *HR* Enoxaparin 30 MG/0.3 ML SYRINGE SQ SCH (05:44)
[2016-12-09] MEDS: Pantoprazole 40 MG VIAL IVP SCH (06:18)
[2016-12-09] MEDS: Vancomycin 1,000 MG in D5% in Water 250 ML IVPB SCH ×2 (06:18→18:06)
[2016-12-09] MEDS: Dexamethasone 4 MG/ML VIAL IVP SCH ×2 (08:42→20:24)
--- NOTE | 2016-12-09 08:54 | Pulmonology Consult Note ---
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 CT scan shows progression of the disease with worsening lymphadenopathy . Patient has poor prognosis .[ (2) Pleural effusion Current Visit: Yes Status: Acute This loculated pleural effusion has increased in size most likely malignant effusion . Because of the presentation it is reasonable to do diagnostic thoracentesis will send pleural fluid analysis with culture and cytology because of loculated pleural effusion will consult IR for diagnostic thoracentesis .To continue IV antibiotics for now (3) Healthcare-associated pneumonia Current Visit: Yes Status: Acute Possible this presentation can be due to post obstructive pneumonia there is no compelling imaging evidence , these presentation can be explained with volume depletion and leukocytosis can be explained by steroid use . Reasonable to culture the pleural fluid make sure this is not the source of infection. History of Present Illness Consult date: 12/09/16 Requesting physician: Kosta Segundo Reason for consult: other (Pleural effusion ) Chief complaint: Altered mental status History of present illness: 81 year old male with past medical history significant for metastatic/primary bronchogenic malignancy? Since his care was done at [facility]. Awaiting records at this point. Per chart review patient has been treated with brain radiation for his brain metastasis and he was on steroids. Patient developed altered mental status was brought to the ER by his family Patient was evaluated work up and diagnosis was sepsis probable HCAP due to obstructive pneumonia patient was started on antibitoics , CT chest was done which showed RUL lung mass slightly reduced when compared to previous scan , but there is worsening mediastinal lymphadenopathy , other lung nodules found were also worsening in Size , patient is a poor historian doesnt know why he is here , denies any cough with sputum production, objectively patient didnt have any fevers. Pulmonary consulted for evaluation increase in size of the loculated pleural effusion. Past Med Surg Social Fam HX - Past Medical History Medical history: asthma, cancer Psychiatric history: no psych history - Social History Smoking Status: Never smoker Smokeless Tobacco Status: No Alcohol use: none Drug use: none Medications and Allergies Cholecalciferol (D-3) [Vitamin D] 1,000 unit PO DAILY 10/11/16 [History] Cyanocobalamin (Vitamin B-12) [Vitamin B12] 1,000 mcg PO DAILY 10/11/16 [History ] Fexofenadine HCl 60 mg PO DAILY 10/11/16 [History] Fluticasone/Salmeterol [Advair 500-50 Diskus] 1 puff IH BID 10/11/16 [History] Montelukast [Singulair] 10 mg PO DAILY 10/11/16 [History] Acetaminophen [Tylenol] 650 mg PO Q6HR PRN 12/07/16 [History] Baclofen [Lioresal] 5 mg PO Q8H PRN 12/07/16 [History] Dexamethasone [Decadron] 8 mg PO TID 12/07/16 [History] Docusate [Colace] 100 mg PO BID 12/07/16 [History] Mag Hydrox/Al Hydrox/Simeth [Antacid Suspension] 30 ml PO Q6H PRN 12/07/16 [ History] Naproxen [Naprosyn] 500 mg PO BID 12/07/16 [History] Pantoprazole Sodium [Protonix] 40 mg PO BID 12/07/16 [History] levETIRAcetam [Keppra Oral Soln] 500 mg PO BID 12/07/16 [History] 3 Allergy/AdvReac Type Severity Reaction Status Date / Time venom-honey bee Allergy Swelling Verified 12/07/16 15:49 [bee venom (honey bee)] of the Eye ROS unobtainable: due to mental status, other All Systems: 10 point review of systems patient denies anything positive , patient is a poor historian - Constitutional Constitutional: as per HPI - Cardiovascular Cardiovascular: no chest pain at rest - Respiratory Respiratory: as per HPI Physical Examination General appearance: no acute distress Eyes: nonicteric ENT: oropharynx moist Neck: no lymphadenopathy Effort: normal Auscultation: left: clear, right: diminished breath sounds Cardiovascular: regular rate and rhythm other (AX 2 follows commands ) tearful Results - Laboratory Findings CBC and BMP: 12/09/16 04:43 12/09/16 04:43 PT/INR, D-dimer PT 20.1 Seconds (9.4-12.1) H 12/09/16 04:43 Abnormal lab findings: Abnormal lab results WBC 14.7 K/mcL (4.3-11.1) H 12/09/16 04:43 RBC 3.20 M/mcL (4.19-5.50) L 12/09/16 04:43 Hgb 8.8 g/dL (12.9-16.9) L 12/09/16 04:43 Hct 28.4 % (37.5-50.1) L 12/09/16 04:43 MCH 27.5 pg (28.0-33.3) L 12/09/16 04:43 MCHC 31.0 g/dL (31.6-35.5) L 12/09/16 04:43 RDW 16.0 % (11.5-14.5) H 12/09/16 04:43 Plt Count 84 K/mcL (140-400) L 12/09/16 04:43 Neutrophils # 13.8 K/mcL (1.6-8.9) H 12/09/16 04:43 Lymphocytes # 0.2 K/mcL (0.6-4.6) L 12/09/16 04:43 Platelet Estimate Decreased (Normal) L 12/08/16 08:40 Anisocytosis 1+ (Not Present) A 12/08/16 08:40 PT 20.1 Seconds (9.4-12.1) H 12/09/16 04:43 BUN/Creatinine Ratio 28 (6-26) H 12/09/16 04:43 Glucose 110 mg/dL (70-99) H 12/09/16 04:43 POC Glucose 118 (58-89) H 12/08/16 20:20 Lactic Acid 2.4 mmol/L (0.5-2.2) H 12/09/16 04:43 Calcium 8.4 mg/dL (8.6-10.8) L 12/09/16 04:43 AST 50 Units/L (5-34) H 12/09/16 04:43 Serum Total Protein 5.3 g/dL (6.0-8.3) L 12/09/16 04:43 Albumin 1.9 g/dL (3.5-5.0) L 12/09/16 04:43 Albumin/Globulin Ratio 0.6 (1.1-2.2) L 12/09/16 04:43 Ur Specific [place] 1.026 (1.010-1.025) H 12/07/16 17:53 Urine Protein 30 mg/dL (Neg-Trace) H 12/07/16 17:53 Urine Blood Moderate (Negative) H 12/07/16 17:53 Urine Microscopic RBC 30-50 per hpf (0-3) H 12/07/16 17:53 Urine Microscopic WBC 5-15 per hpf (0-3) H 12/07/16 17:53 Ur Squamous Epith Cells Many per lpf (None-Few) H 12/07/16 17:53 Ur Culture Indicated? YES (NO) A 12/07/16 17:53 - Clinical Findings Intake & Output: Intake & Output 12/08/16 12/09/16 12/09/16 23:59 07:59 15:59 Intake Total 1560 / 1560 Output Total 650 / 650 Balance 1560 / 1560 -650 / -650 Weight 71.4 kg Consult Discharge Plan - Plan Referrals: Diana Coffey MD [Primary Care Provider] -
[2016-12-09] MEDS ORDERED: Furosemide 20 MG/2 ML VIAL IVP ONE ×2 (15:28→15:30)
--- NOTE | 2016-12-09 15:40 | Internal Med Progress Note ---
Date of Encounter: 12/09/16 Time of Encounter: 10:50 - Assessment and plan (1) Pneumonia Current Visit: Yes Status: Suspected Assessment and plan: Healthcare associated. On broad-spectrum antibiotics. Blood cultures have been negative. Moderate risk for complications due to underlying comorbidities and malignancy. CT scan of the chest done and shows loculated pleural effusion. Consulted pulmonology and appreciate recommendations. Will consult interventional radiology for diagnostic paracentesis. We will send pleural fluid for cytology Qualifiers: Pneumonia type: due to other aerobic Gram-negative bacteria Laterality: right Lung location: lower lobe of lung Qualified Code(s): J15.6 - Pneumonia due to other aerobic Gram-negative bacteria (2) Healthcare-associated pneumonia Current Visit: Yes Status: Acute (3) Altered mental status Current Visit: Yes Status: Acute Assessment and plan: Intermittent delirium remains but patient is redirectable. Continue supportive care and treat underlying conditions. Qualifiers: Altered mental status type: delirium Qualified Code(s): R41.0 - Disorientation, unspecified (4) Severe sepsis Current Visit: Yes Status: Acute Assessment and plan: Treating with broad-spectrum antibiotics. (5) Metastatic cancer Current Visit: Yes Status: Chronic Assessment and plan: Poor overall prognosis. Continue follow-up with oncology as outpatient. - Subjective Interval history: Patient feels better today. Denies shortness of breath. No chest pain. No fever or chills reported overnight. Saturating well on room air. - Constitutional Vitals: Temp Pulse Resp BP Pulse Ox 97.5 F L 88 18 120/68 97 12/09/16 11:31 12/09/16 11:31 12/09/16 11:31 12/09/16 11:31 12/09/16 11:31 General appearance: Present: cooperative, A&O X 2, no acute distress, answers questions appropriately - Eye Eye exam: Present: EOMI, PERRL, conjuntiva pink, sclera anicteric - Neck Neck exam general surgery: Present: supple, trachea midline. Absent: lymphadenopathy - Respiratory Respiratory exam: Present: decreased breath sounds (At right base), prolonged expiratory phase. Absent: accessory muscle use, rales, rhonchi, wheezes - Cardiovascular Cardiovascular exam: Present: RRR, +S1, +S2. Absent: diastolic murmur, gallop, rubs, systolic murmur - GI/Abdominal GI/Abdominal exam: Present: normal bowel sounds, soft, no peritoneal signs. Absent: distended, tenderness - Neurological Exam Neurological exam: Present: alert, no focal deficits, strengths equal and symetr throughout. Absent: facial droop, speech deficit Internal Medicine: Result - Labs CBC & Chem 7: 12/09/16 04:43 12/09/16 04:43 Labs: Short CBC 12/09/16 Range/Units 04:43 WBC 14.7 H (4.3-11.1) K/mcL Hgb 8.8 L (12.9-16.9) g/dL Hct 28.4 L (37.5-50.1) % Plt Count 84 L (140-400) K/mcL Neutrophils # 13.8 H (1.6-8.9) K/mcL BMP 12/09/16 04:43 Sodium 136 Potassium 4.4 Chloride 107 Carbon Dioxide 19 BUN 26 Creatinine 0.92 Glucose 110 H Calcium 8.4 L Liver Function 12/09/16 Range/Units 04:43 Total Bilirubin 0.6 (0.2-1.2) mg/dL Direct Bilirubin 0.4 (0.0-0.5) mg/dL AST 50 H (5-34) Units/L ALT 20 (0-55) Units/L Alkaline Phosphatase 116 (38-126) Units/L Albumin 1.9 L (3.5-5.0) g/dL - ABG Interpretation ABG results: PT/INR, D-dimer PT 20.1 Seconds (9.4-12.1) H 12/09/16 04:43 Consult Discharge Plan - Plan Referrals: Diana Coffey MD [Primary Care Provider] -
[2016-12-09] MEDS ORDERED: clonazePAM 0.5 MG TABLET PO PRN (17:08)
[2016-12-10 05:10] LABS: Hematocrit 27.3 % (37.5-50.1); Immature Granulocytes % 1.2 % (0-4); Lymphocytes # 0.3 K/mcL (0.6-4.6); Lymphocytes % 1.3 %; Mean Corpuscular Hemoglobin 28.9 pg (28.0-33.3); Mean Corpuscular Volume 87.8 fL (83.0-100.0); Mean Platelet Volume 10.6 fL (9.4-12.4); Platelet Count 115 K/mcL (140-400); Red Blood Count 3.11 M/mcL (4.19-5.50); Red Cell Distribution Width 16.2 % (11.5-14.5); Segmented Neutrophils % 92.5 %
[2016-12-10] MEDS: Cefepime HCl 2,000 MG in D5% in Water (Mini-Bag+) 100 ML IVPB SCH (05:14)
[2016-12-10] MEDS: *HR* Enoxaparin 30 MG/0.3 ML SYRINGE SQ SCH (05:14)
[2016-12-10 05:22] LABS: BUN/Creatinine Ratio 34 (6-26); Blood Urea Nitrogen 33 mg/dL (8-26); Calcium 8.5 mg/dL (8.6-10.8); Carbon Dioxide 21 mEq/L (19-29); Chloride 106 mEq/L (98-109); Glucose 102 mg/dL (70-99); Magnesium 1.6 mg/dL (1.6-2.6); Osmolality,Calculated 289 (280-300); Potassium 4.2 mEq/L (3.5-4.5); Sodium 136 mEq/L (136-145); eGFR For African Americans > 60 (> 60); eGFR For Non-African Americans > 60 (> 60)
[2016-12-10] MEDS: Vancomycin 1,000 MG in D5% in Water 250 ML IVPB SCH (06:05)
[2016-12-10] MEDS: Pantoprazole 40 MG VIAL IVP SCH (06:05)
--- NOTE | 2016-12-10 08:03 | Pulmonology Progress Note ---
Date of Encounter: 12/10/16 Time of Encounter: 07:10 Assessment and Plan (1) Pleural effusion Current Visit: Yes Status: Chronic I suspect this is chronic and most likely malignant. According to the nurse was taking care of the patient family does not want any procedures. Please call for any questions. (2) Metastatic cancer Current Visit: Yes Status: Chronic Subjective Principal diagnosis: Altered mental status Interval history: Patient denies any complaint Objective PUL Vital signs: Last Vital Signs Temp 98.7 F 12/10/16 04:58 Pulse 92 12/10/16 04:58 Resp 18 12/10/16 04:58 BP 135/74 12/10/16 04:58 Pulse Ox 97 12/10/16 04:58 General appearance: no acute distress ENT: oropharynx dry Neck: supple Effort: normal Auscultation: left: clear, right: diminished breath sounds Tactile fremitus: left: diminished, right: normal Cardiovascular: regular rate and rhythm Gastrointestinal: normoactive bowel sounds Extremities: no cyanosis, edema non-focal exam depressed Results - Laboratory Findings CBC and BMP: 12/10/16 04:38 12/10/16 04:38 PT/INR, D-dimer PT 20.1 Seconds (9.4-12.1) H 12/09/16 04:43 Abnormal lab findings: Abnormal lab results WBC 20.5 K/mcL (4.3-11.1) H 12/10/16 04:38 RBC 3.11 M/mcL (4.19-5.50) L 12/10/16 04:38 Hgb 9.0 g/dL (12.9-16.9) L 12/10/16 04:38 Hct 27.3 % (37.5-50.1) L 12/10/16 04:38 RDW 16.2 % (11.5-14.5) H 12/10/16 04:38 Plt Count 115 K/mcL (140-400) L 12/10/16 04:38 Neutrophils # 19.0 K/mcL (1.6-8.9) H 12/10/16 04:38 Lymphocytes # 0.3 K/mcL (0.6-4.6) L 12/10/16 04:38 Platelet Estimate Decreased (Normal) L 12/08/16 08:40 Anisocytosis 1+ (Not Present) A 12/08/16 08:40 PT 20.1 Seconds (9.4-12.1) H 12/09/16 04:43 BUN 33 mg/dL (8-26) H 12/10/16 04:38 BUN/Creatinine Ratio 34 (6-26) H 12/10/16 04:38 Glucose 102 mg/dL (70-99) H 12/10/16 04:38 POC Glucose 120 (58-89) H 12/09/16 20:54 Lactic Acid 2.4 mmol/L (0.5-2.2) H 12/09/16 04:43 Calcium 8.5 mg/dL (8.6-10.8) L 12/10/16 04:38 AST 50 Units/L (5-34) H 12/09/16 04:43 Serum Total Protein 5.3 g/dL (6.0-8.3) L 12/09/16 04:43 Albumin 1.9 g/dL (3.5-5.0) L 12/09/16 04:43 Albumin/Globulin Ratio 0.6 (1.1-2.2) L 12/09/16 04:43 Ur Specific [place] 1.026 (1.010-1.025) H 12/07/16 17:53 Urine Protein 30 mg/dL (Neg-Trace) H 12/07/16 17:53 Urine Blood Moderate (Negative) H 12/07/16 17:53 Urine Microscopic RBC 30-50 per hpf (0-3) H 12/07/16 17:53 Urine Microscopic WBC 5-15 per hpf (0-3) H 12/07/16 17:53 Ur Squamous Epith Cells Many per lpf (None-Few) H 12/07/16 17:53 Ur Culture Indicated? YES (NO) A 12/07/16 17:53 - Diagnostic Findings CT scan - chest: report reviewed, image reviewed - Clinical Findings Intake & Output: Intake & Output 12/09/16 12/10/16 12/10/16 23:59 07:59 15:59 Intake Total 470 / 470 Output Total 1650 / 1650 Balance -1180 / -1180 Weight 72.5 kg Consult Discharge Plan - Plan Referrals: Diana Coffey MD [Primary Care Provider] -
--- NOTE | 2016-12-10 10:11 | Palliative - Consult Note ---
<Fred Babcock - Last Filed: 12/10/16 10:06> Date of Encounter: 12/10/16 Time of Encounter: 10:06 - Assessment and Plan (1) Goals of care, counseling/discussion Current Visit: Yes Status: Acute Assessment and plan: Patient is currently requesting no further treatment besides his antibiotics, he adamantly does not want any further Cancer therapy or invasive procedures including thoracentesis. Patient's is Power of [employer] St[employer]. Code status is DNR/CCA/DNI. Discussed with patient and hospice options, but currently only request home health. Patient currently qualifies for hospice due to withdrawal of cancer treatment. will continue to follow patient. currently no ADL's on record, patient's will bring ADL's to the hospice. (2) Healthcare-associated pneumonia Current Visit: Yes Status: Acute Assessment and plan: Patient declines throacentesis, and patient requests to continue antibiotics. (3) Altered mental status Current Visit: Yes Status: Acute Assessment and plan: Continue supportive care. Qualifiers: Altered mental status type: delirium Qualified Code(s): R41.0 - Disorientation, unspecified (4) Metastatic cancer Current Visit: Yes Status: Chronic Assessment and plan: Patient and decline continued Cancer Treatments (5) Pleural effusion Current Visit: Yes Status: Chronic Assessment and plan: Patient declines thoracentesis. Palliative-CN HPI - Data of Consult Patient: new to practice Consult date: 12/10/16 Requesting Physician: Kosta Segundo MD [facility] Consult Narrative Palliative Care/Comfort Measures: Hospice care Reason for consult: Goals of care/hopsice qualifications History of present illness: Mr. Belle is a 81 year old male with pneumonia and hx of metastatic Cancer that has spread to his brain last treated at the [facility] on . Patient says he' s "uncomfortable but there's nothing you can do about it", He states that he's ok with his discomfort. He denies being in pain. He states that he no longer wants invasive treatments and is no longer interested in radiation treatment for his cancer. CC: Kosta Segundo MD Past Med Surg Social Fam HX - Past Medical History Medical history: asthma, cancer Psychiatric history: no psych history - Social History Smoking Status: Never smoker Smokeless Tobacco Status: No Alcohol use: none Drug use: none Medications and Allergies Cholecalciferol (D-3) [Vitamin D] 1,000 unit PO DAILY 10/11/16 [History] Cyanocobalamin (Vitamin B-12) [Vitamin B12] 1,000 mcg PO DAILY 10/11/16 [History ] Fexofenadine HCl 60 mg PO DAILY 10/11/16 [History] Fluticasone/Salmeterol [Advair 500-50 Diskus] 1 puff IH BID 10/11/16 [History] Montelukast [Singulair] 10 mg PO DAILY 10/11/16 [History] Acetaminophen [Tylenol] 650 mg PO Q6HR PRN 12/07/16 [History] Baclofen [Lioresal] 5 mg PO Q8H PRN 12/07/16 [History] Dexamethasone [Decadron] 8 mg PO TID 12/07/16 [History] Docusate [Colace] 100 mg PO BID 12/07/16 [History] Mag Hydrox/Al Hydrox/Simeth [Antacid Suspension] 30 ml PO Q6H PRN 12/07/16 [ History] Naproxen [Naprosyn] 500 mg PO BID 12/07/16 [History] Pantoprazole Sodium [Protonix] 40 mg PO BID 12/07/16 [History] levETIRAcetam [Keppra Oral Soln] 500 mg PO BID 12/07/16 [History] 3 Allergy/AdvReac Type Severity Reaction Status Date / Time venom-honey bee Allergy Swelling Verified 12/07/16 15:49 [bee venom (honey bee)] of the Eye Palliative Care-Exam - Constitutional Vitals: Temp Pulse Resp BP Pulse Ox 98.1 F 87 22 140/76 97 12/10/16 08:30 12/10/16 08:30 12/10/16 08:30 12/10/16 08:30 12/10/16 08:30 General appearance: Present: cooperative, mild distress - Respiratory Additional comments: shallow breathing. - Cardiovascular Cardiovascular exam: Present: RRR Internal Medicine - CN: Reslt - Labs CBC & Chem 7: 12/10/16 04:38 12/10/16 04:38 Labs: Short CBC 12/10/16 Range/Units 04:38 WBC 20.5 H (4.3-11.1) K/mcL Hgb 9.0 L (12.9-16.9) g/dL Hct 27.3 L (37.5-50.1) % Plt Count 115 L (140-400) K/mcL Neutrophils # 19.0 H (1.6-8.9) K/mcL BMP 12/10/16 04:38 Sodium 136 Potassium 4.2 Chloride 106 Carbon Dioxide 21 BUN 33 H Creatinine 0.98 Glucose 102 H Calcium 8.5 L - ABG Interpretation ABG results: PT/INR, D-dimer PT 20.1 Seconds (9.4-12.1) H 12/09/16 04:43 Consult Discharge Plan - Plan Referrals: [facility] [Other] (They are located beside of [facility]) Palliative Quality Palliative Quality: Screen for Code Status: Yes, Screen for Goals of Care: Yes, Screen for Pain: Yes, If Pain Regimen Started, Initiate Bowel Regimen: NA, Screen for Nausea/Vomitting: NA Code Status: 12/07/16 21:58 Resuscitation Status: Active [RES] Routine Comment: Resuscitation Status: [id number] <Law Del Cid L - Last Filed: 12/10/16 11:59> Date of Encounter: 12/10/16 Palliative-CN HPI - Data of Consult Requesting Physician: Kosta Segundo MD Primary Care Provider: Az Hammer - Consult Narrative History of present illness: Mr. Belle is a 81 year old male CC: Kosta Segundo MD Palliative Care-Exam - Constitutional Vitals: Temp Pulse Resp BP Pulse Ox 98.6 F 94 22 139/71 97 12/10/16 11:18 12/10/16 11:18 12/10/16 11:18 12/10/16 11:18 12/10/16 11:18 Internal Medicine - CN: Reslt - Labs CBC & Chem 7: 12/10/16 04:38 12/10/16 04:38 Labs: Short CBC 12/10/16 Range/Units 04:38 WBC 20.5 H (4.3-11.1) K/mcL Hgb 9.0 L (12.9-16.9) g/dL Hct 27.3 L (37.5-50.1) % Plt Count 115 L (140-400) K/mcL Neutrophils # 19.0 H (1.6-8.9) K/mcL BMP 12/10/16 04:38 Sodium 136 Potassium 4.2 Chloride 106 Carbon Dioxide 21 BUN 33 H Creatinine 0.98 Glucose 102 H Calcium 8.5 L - ABG Interpretation ABG results: PT/INR, D-dimer PT 20.1 Seconds (9.4-12.1) H 12/09/16 04:43 - Attending Attestation I examined this patient and my medical decision-making was reviewed with the Resident Physician. I agree with the documented findings, disposition and treatment plan as described except to the extent set forth below. Family desires to continue antibiotics for as long his IV is available and are working for him. He understands hospices available whenever they want. he does not want to have thoracentesis this has been communicated with treatment team. Palliative Quality Code Status: 12/07/16 21:58 Resuscitation Status: Active [RES] Routine Comment: Resuscitation Status: [id number]
[2016-12-10] MEDS ORDERED: levoFLOXacin 750 MG TABLET PO SCH (10:15)
--- NOTE | 2016-12-10 10:27 | Electrocardiograph Report ---
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
[2016-12-10] MEDS: Dexamethasone 4 MG/ML VIAL IVP SCH (10:32)
[2016-12-10] MEDS: levETIRAcetam 500 MG/5 ML UDC PO SCH ×2 (11:44→21:02)
--- NOTE | 2016-12-10 13:16 | Discharge Summary ---
Date of Encounter: 12/10/16 Time of Encounter: 13:07 - Discharge Diagnosis (1) Pneumonia Priority: Primary Status: Acute Comments: Bacterial pneumonia unspecified organism Qualifiers: Pneumonia type: due to unspecified organism Laterality: right Lung location: lower lobe of lung Qualified Code(s): J18.1 - Lobar pneumonia, unspecified organism (2) Healthcare-associated pneumonia Priority: Secondary Status: Acute (3) Altered mental status Priority: Secondary Status: Resolved Qualifiers: Altered mental status type: delirium Qualified Code(s): R41.0 - Disorientation, unspecified (4) Severe sepsis Priority: Secondary Status: Acute (5) Metastatic cancer Priority: Secondary Status: Chronic (6) Pleural effusion Priority: Secondary Status: Chronic - Discharge Medications Prescriptions: levoFLOXacin [Levaquin] 750 mg PO Q48H #7 tab Home Medications: Cholecalciferol (D-3) [Vitamin D] 1,000 unit PO DAILY 10/11/16 [History] Cyanocobalamin (Vitamin B-12) [Vitamin B12] 1,000 mcg PO DAILY 10/11/16 [History ] Fexofenadine HCl 60 mg PO DAILY 10/11/16 [History] Fluticasone/Salmeterol [Advair 500-50 Diskus] 1 puff IH BID 10/11/16 [History] Montelukast [Singulair] 10 mg PO DAILY 10/11/16 [History] Acetaminophen [Tylenol] 650 mg PO Q6HR PRN 12/07/16 [History] Baclofen [Lioresal] 5 mg PO Q8H PRN 12/07/16 [History] Dexamethasone [Decadron] 8 mg PO TID 12/07/16 [History] Docusate [Colace] 100 mg PO BID 12/07/16 [History] Mag Hydrox/Al Hydrox/Simeth [Antacid Suspension] 30 ml PO Q6H PRN 12/07/16 [ History] Naproxen [Naprosyn] 500 mg PO BID 12/07/16 [History] Pantoprazole Sodium [Protonix] 40 mg PO BID 12/07/16 [History] levETIRAcetam [Keppra Oral Soln] 500 mg PO BID 12/07/16 [History] levoFLOXacin [Levaquin] 750 mg PO Q48H #7 tab 12/10/16 [Rx] Allergies/Adverse Reactions: 3 Allergy/AdvReac Type Severity Reaction Status Date / Time venom-honey bee Allergy Swelling Verified 12/07/16 15:49 [bee venom (honey bee)] of the Eye Procedures/tests Complete & Pending: Procedures Performed prior 72 hours Category Date Time Status CT chest w con [CT] Routine Cat Scan 12/08/16 11:36 Completed Date of admission: 12/07/16 19:12 Primary care physician: Diana Hammer Consults: 12/07/16 21:54 Consult to Speech Therapy [CONS] Routine Comment: Evaluate, develop and implement POC Reason for Consult: speech and swallowing valuation Call Completed: No 12/09/16 08:29 Consult to Pulmonology [CONS] Routine Consulting Provider: [facility] [place] Reason for Consult: RIght pleural effusion- loculated. Time Notified: 08:29 Call Completed: Yes 12/09/16 16:31 Consult to Palliative Care [CONS] Routine Comment: Consulting Provider: Palliative Care [place] Reason for Consult: Metastatic cancer, poor prognosis Call Completed: Yes Discharging clinician: Kosta Segundo Anticipated date of discharge: 12/11/16 - Patient Status Disposition: Hospice - Medical Facility Condition: Good Functional capacity at discharge: independent ambulation Overall status at discharge: patient is progressing back to baseline - Discharge Instructions Instructions: Pneumonia (DC) Follow Up With: DIANA SERRANO [Other] - 12/17/16 1:30 pm (They are located beside of [facility]) - Diet and Activity Activity: as per physical therapy Diet: low fat, low cholesterol, low salt diet Hospital course: Mr. 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 He was treated with broad- spectrum antibiotics as he was recently hospitalized to undergo chemotherapy and radiation treatments. His white cell count on presentation was 23 and he did have an elevated lactic acid level. Chest x-ray showed right lower lobe infiltrate in addition to right upper lobe mass which is chronic. This was further evaluated with a CT scan of the chest which showed a loculated pleural effusion. Pulmonology was consulted and they recommended that a diagnostic paracentesis be done to look for infection or malignancy. However, patient does not wish to undergo any further interventions and does not want to undergo any further treatment for his cancer. As such, palliative care was consulted. They have decided to go ahead with hospice at a care home. mesh worker will make arrangements for the patient to be transferred to care home for hospice. Patient still wants to continue antibiotics so he will complete treatment course for his pneumonia for 14 days. Overall, patient has poor prognosis. His blood cultures have been negative here - Time Spent with Patient Total time spent providing and/or coordinating discharge services: Greater than 30 minutes (35 min) - Constitutional Vitals: Temp Pulse Resp BP Pulse Ox 98.6 F 96 22 139/71 97 12/10/16 11:18 12/10/16 11:50 12/10/16 11:18 12/10/16 11:18 12/10/16 11:18 General appearance: Present: cooperative, A&O X 2, no acute distress, answers questions appropriately - Neck Neck exam general surgery: Present: supple, trachea midline. Absent: lymphadenopathy - Respiratory Respiratory exam: Present: decreased breath sounds (right base). Absent: accessory muscle use, rales, rhonchi, wheezes - Cardiovascular Cardiovascular exam: Present: RRR, +S1, +S2. Absent: diastolic murmur, gallop, rubs, systolic murmur - GI/Abdominal GI/Abdominal exam: Present: normal bowel sounds, soft, no peritoneal signs. Absent: distended, tenderness - Extremities Exam Extremities exam: Present: warm, radial pulses palpable and symmetrical. Absent : calf tenderness, cyanotic, pedal edema - Neurological Exam Neurological exam: Present: alert, no focal deficits, strengths equal and symetr throughout. Absent: facial droop, speech deficit
--- NOTE | 2016-12-10 13:19 | Physician Discharge Referral ---
Home Health/Hosp Referral Info Transfer to: Home Health Provider in Charge Post Discharge: PCP - Diagnosis (1) Pneumonia Priority: Primary Status: Acute (2) Healthcare-associated pneumonia Priority: Secondary Status: Acute (3) Altered mental status Priority: Secondary Status: Resolved (4) Severe sepsis Priority: Secondary Status: Acute (5) Metastatic cancer Priority: Secondary Status: Chronic (6) Pleural effusion Priority: Secondary Status: Chronic - Respiratory Orders Smoking Cessation: Smoking cessation has been advised. For more information, call the [place] [employer] Quit Line at 5-855-OIFB-NOW. - Diet/Nutrition Diet/Nutrition Orders: Cardiac - Services Needed Following services are medically necessary services: Nursing, Physical Therapy, Occupational Therapy - Transfer Medications Prescriptions: levoFLOXacin [Levaquin] 750 mg PO Q48H #7 tab Home Medications: Cholecalciferol (D-3) [Vitamin D] 1,000 unit PO DAILY 10/11/16 [History] Cyanocobalamin (Vitamin B-12) [Vitamin B12] 1,000 mcg PO DAILY 10/11/16 [History ] Fexofenadine HCl 60 mg PO DAILY 10/11/16 [History] Fluticasone/Salmeterol [Advair 500-50 Diskus] 1 puff IH BID 10/11/16 [History] Montelukast [Singulair] 10 mg PO DAILY 10/11/16 [History] Acetaminophen [Tylenol] 650 mg PO Q6HR PRN 12/07/16 [History] Baclofen [Lioresal] 5 mg PO Q8H PRN 12/07/16 [History] Dexamethasone [Decadron] 8 mg PO TID 12/07/16 [History] Docusate [Colace] 100 mg PO BID 12/07/16 [History] Mag Hydrox/Al Hydrox/Simeth [Antacid Suspension] 30 ml PO Q6H PRN 12/07/16 [ History] Naproxen [Naprosyn] 500 mg PO BID 12/07/16 [History] Pantoprazole Sodium [Protonix] 40 mg PO BID 12/07/16 [History] levETIRAcetam [Keppra Oral Soln] 500 mg PO BID 12/07/16 [History] levoFLOXacin [Levaquin] 750 mg PO Q48H #7 tab 12/10/16 [Rx] Allergies/Adverse Reactions: 3 Allergy/AdvReac Type Severity Reaction Status Date / Time venom-honey bee Allergy Swelling Verified 12/07/16 15:49 [bee venom (honey bee)] of the Eye Certification: Further, I certify that my clinical findings support that this patient is homebound (i.e. absences from home require considerable and taxing effort and are for medical reasons or buddhist services or infrequently or short duration when for other reasons) because: Homebound Reason: Patient requires assistance of a person or device to safely leave home Attestation: My signature below is to certify that this patient is under my care and that I, or nurse practitioner, or a physician's school office assistant working with me, has a face-to -face encounter with this patient.
--- NOTE | 2016-12-10 16:24 | Physician Discharge Referral ---
ExtendedCare Referral Info Provider in Charge after Transfer: PCP Institutional Level of Care: Skilled - Diagnosis (1) Pneumonia Priority: Primary Status: Acute (2) Healthcare-associated pneumonia Priority: Secondary Status: Acute (3) Altered mental status Priority: Secondary Status: Resolved (4) Severe sepsis Priority: Secondary Status: Acute (5) Metastatic cancer Priority: Secondary Status: Chronic (6) Pleural effusion Priority: Secondary Status: Chronic Prognosis: Poor Aware of Diagnosis: Patient, Family Aware of Prognosis: Patient, Family - Transfer Medications Prescriptions: levoFLOXacin [Levaquin] 750 mg PO Q48H #7 tab Home Medications: Cholecalciferol (D-3) [Vitamin D] 1,000 unit PO DAILY 10/11/16 [History] Cyanocobalamin (Vitamin B-12) [Vitamin B12] 1,000 mcg PO DAILY 10/11/16 [History ] Fexofenadine HCl 60 mg PO DAILY 10/11/16 [History] Fluticasone/Salmeterol [Advair 500-50 Diskus] 1 puff IH BID 10/11/16 [History] Montelukast [Singulair] 10 mg PO DAILY 10/11/16 [History] Acetaminophen [Tylenol] 650 mg PO Q6HR PRN 12/07/16 [History] Baclofen [Lioresal] 5 mg PO Q8H PRN 12/07/16 [History] Dexamethasone [Decadron] 8 mg PO TID 12/07/16 [History] Docusate [Colace] 100 mg PO BID 12/07/16 [History] Mag Hydrox/Al Hydrox/Simeth [Antacid Suspension] 30 ml PO Q6H PRN 12/07/16 [ History] Naproxen [Naprosyn] 500 mg PO BID 12/07/16 [History] Pantoprazole Sodium [Protonix] 40 mg PO BID 12/07/16 [History] levETIRAcetam [Keppra Oral Soln] 500 mg PO BID 12/07/16 [History] levoFLOXacin [Levaquin] 750 mg PO Q48H #7 tab 12/10/16 [Rx] Allergies/Adverse Reactions: 3 Allergy/AdvReac Type Severity Reaction Status Date / Time venom-honey bee Allergy Swelling Verified 12/07/16 15:49 [bee venom (honey bee)] of the Eye - Respiratory Orders Oxygen / L per min (keep sats >90%) Smoking Cessation: Smoking cessation has been advised. For more information, call the [place] [employer] Quit Line at 1-521-UZUQ-NOW. - Ancillary Orders May consult with Dentist, Incinerator Plant Laborer, Insurance Examining Clerk PRN - Advance Directives Code Status: DNR-Arrest/Don't Intubate - Mobility Orders Other (per PT eval) - Rehabiliation Orders Rehab Potential: Fair Rehab Orders: Evaluation for Physical Therapy, Evaluation for Occupational Therapy - Diet Orders Mechanical Soft (mechanically altered texures and thin liquids. Assistance with feeds.) CERTIFICATION: I certify that the transfer of the above named patient to an Extended Care Facility is necessary for the continuing treatment of the diagnosis listed. The above information is true and accurate reflection of patient's current condition. Confidential - Redisclosure prohibited without a patient's written consent.
[2016-12-10] MEDS ORDERED: Aminoglycoside Consult 1 EACH MC ONE (17:19)
[2016-12-11] MEDS: *HR* Enoxaparin 30 MG/0.3 ML SYRINGE SQ SCH (06:36)
[2016-12-11] MEDS: Pantoprazole 40 MG VIAL IVP SCH (06:36)
[2016-12-11] MEDS: levETIRAcetam 500 MG/5 ML UDC PO SCH (09:50)
[2016-12-11] MEDS: Acetaminophen 325 MG TABLET PO PRN (09:51)
--- NOTE | 2016-12-11 10:09 | Palliative Progress Note ---
<Fred Babcock - Last Filed: 12/11/16 10:06> Date of Encounter: 12/11/16 Time of Encounter: 10:06 - Assessment and plan (1) Goals of care, counseling/discussion Current Visit: Yes Status: Acute Assessment and plan: Patient continues to request no further treatment besides his antibiotics, he adamantly does not want any further Cancer therapy or invasive procedures including thoracentesis. Patient's is Power of Hearing Screen Coordinator. Code status is DNR/CCA/DNI. Discussed with patient and hospice options, but currently only request senior living. Patient currently qualifies for hospice due to withdrawal of cancer treatment. will continue to follow patient. currently no AD's on record, patient's will bring AD's to the hospice. (2) Healthcare-associated pneumonia Current Visit: Yes Status: Acute Assessment and plan: Patient declines throacentesis, and patient requests to continue antibiotics. (3) Altered mental status Current Visit: Yes Status: Resolved Assessment and plan: Continue supportive care. Qualifiers: Altered mental status type: delirium Qualified Code(s): R41.0 - Disorientation, unspecified (4) Metastatic cancer Current Visit: Yes Status: Chronic Assessment and plan: Patient and decline Cancer Treatments (5) Pleural effusion Current Visit: Yes Status: Chronic Assessment and plan: Patient declines thoracentesis. - Time Spent With Patient Total time spent is greater than 50% in coordination of care (as documented) at patient's floor/unit and/or counseling patient: - Subjective Interval history: PAtient was seen today in and out of consciousness. He was unable to cooperate to commands for physical exam. Patient's was not available during encounter. - Constitutional Vitals: Abnormal lab results WBC 20.5 K/mcL (4.3-11.1) H 12/10/16 04:38 RBC 3.11 M/mcL (4.19-5.50) L 12/10/16 04:38 Hgb 9.0 g/dL (12.9-16.9) L 12/10/16 04:38 Hct 27.3 % (37.5-50.1) L 12/10/16 04:38 RDW 16.2 % (11.5-14.5) H 12/10/16 04:38 Plt Count 115 K/mcL (140-400) L 12/10/16 04:38 Neutrophils # 19.0 K/mcL (1.6-8.9) H 12/10/16 04:38 Lymphocytes # 0.3 K/mcL (0.6-4.6) L 12/10/16 04:38 Platelet Estimate Decreased (Normal) L 12/08/16 08:40 Anisocytosis 1+ (Not Present) A 12/08/16 08:40 PT 20.1 Seconds (9.4-12.1) H 12/09/16 04:43 BUN 33 mg/dL (8-26) H 12/10/16 04:38 BUN/Creatinine Ratio 34 (6-26) H 12/10/16 04:38 Glucose 102 mg/dL (70-99) H 12/10/16 04:38 POC Glucose 103 (58-89) H 12/10/16 11:11 Lactic Acid 2.4 mmol/L (0.5-2.2) H 12/09/16 04:43 Calcium 8.5 mg/dL (8.6-10.8) L 12/10/16 04:38 AST 50 Units/L (5-34) H 12/09/16 04:43 Serum Total Protein 5.3 g/dL (6.0-8.3) L 12/09/16 04:43 Albumin 1.9 g/dL (3.5-5.0) L 12/09/16 04:43 Albumin/Globulin Ratio 0.6 (1.1-2.2) L 12/09/16 04:43 Ur Specific Bly 1.026 (1.010-1.025) H 12/07/16 17:53 Urine Protein 30 mg/dL (Neg-Trace) H 12/07/16 17:53 Urine Blood Moderate (Negative) H 12/07/16 17:53 Urine Microscopic RBC 30-50 per hpf (0-3) H 12/07/16 17:53 Urine Microscopic WBC 5-15 per hpf (0-3) H 12/07/16 17:53 Ur Squamous Epith Cells Many per lpf (None-Few) H 12/07/16 17:53 Ur Culture Indicated? YES (NO) A 12/07/16 17:53 - Respiratory Respiratory exam: Present: decreased breath sounds (decreased breath sounds most likely due to decreased effort. patient was unable to cooperate with instructions) - Cardiovascular Cardiovascular exam: Present: RRR - Psychiatric Psychiatric exam: Present: flat affect Palliative Quality Palliative Quality: Screen for Code Status: Yes, Screen for Goals of Care: Yes, Screen for Pain: Yes, If Pain Regimen Started, Initiate Bowel Regimen: NA, Screen for Nausea/Vomitting: NA Code Status: 12/07/16 21:58 Resuscitation Status: Active [RES] Routine Comment: Resuscitation Status: [id number] - Labs CBC & Chem 7: 12/10/16 04:38 12/10/16 04:38 Labs: Laboratory Results - last 24 hr 12/10/16 12/10/16 08:33 11:11 POC Glucose 97 H 103 H - ABG Interpretation ABG results: PT/INR, D-dimer PT 20.1 Seconds (9.4-12.1) H 12/09/16 04:43 Consult Discharge Plan - Plan Instructions: Pneumonia (DC) Referrals: AZ SERRANO [Other] - 12/17/16 1:30 pm (They are located beside [facility]) Prescriptions: levoFLOXacin [Levaquin] 750 mg PO Q48H #7 tab <Law Del Cid L - Last Filed: 12/11/16 10:25> Date of Encounter: 12/11/16 - Time Spent With Patient Total time spent is greater than 50% in coordination of care (as documented) at patient's floor/unit and/or counseling patient: - Constitutional Vitals: Abnormal lab results WBC 20.5 K/mcL (4.3-11.1) H 12/10/16 04:38 RBC 3.11 M/mcL (4.19-5.50) L 12/10/16 04:38 Hgb 9.0 g/dL (12.9-16.9) L 12/10/16 04:38 Hct 27.3 % (37.5-50.1) L 12/10/16 04:38 RDW 16.2 % (11.5-14.5) H 12/10/16 04:38 Plt Count 115 K/mcL (140-400) L 12/10/16 04:38 Neutrophils # 19.0 K/mcL (1.6-8.9) H 12/10/16 04:38 Lymphocytes # 0.3 K/mcL (0.6-4.6) L 12/10/16 04:38 Platelet Estimate Decreased (Normal) L 12/08/16 08:40 Anisocytosis 1+ (Not Present) A 12/08/16 08:40 PT 20.1 Seconds (9.4-12.1) H 12/09/16 04:43 BUN 33 mg/dL (8-26) H 12/10/16 04:38 BUN/Creatinine Ratio 34 (6-26) H 12/10/16 04:38 Glucose 102 mg/dL (70-99) H 12/10/16 04:38 POC Glucose 103 (58-89) H 12/10/16 11:11 Lactic Acid 2.4 mmol/L (0.5-2.2) H 12/09/16 04:43 Calcium 8.5 mg/dL (8.6-10.8) L 12/10/16 04:38 AST 50 Units/L (5-34) H 12/09/16 04:43 Serum Total Protein 5.3 g/dL (6.0-8.3) L 12/09/16 04:43 Albumin 1.9 g/dL (3.5-5.0) L 12/09/16 04:43 Albumin/Globulin Ratio 0.6 (1.1-2.2) L 12/09/16 04:43 Ur Specific Bly 1.026 (1.010-1.025) H 12/07/16 17:53 Urine Protein 30 mg/dL (Neg-Trace) H 12/07/16 17:53 Urine Blood Moderate (Negative) H 12/07/16 17:53 Urine Microscopic RBC 30-50 per hpf (0-3) H 12/07/16 17:53 Urine Microscopic WBC 5-15 per hpf (0-3) H 12/07/16 17:53 Ur Squamous Epith Cells Many per lpf (None-Few) H 12/07/16 17:53 Ur Culture Indicated? YES (NO) A 12/07/16 17:53 - Attending Attestation I examined this patient and my medical decision-making was reviewed with the Resident Physician. I agree with the documented findings, disposition and treatment plan as described except to the extent set forth below. Palliative Quality Code Status: 12/07/16 21:58 Resuscitation Status: Active [RES] Routine Comment: Resuscitation Status: [id number] - Labs CBC & Chem 7: 12/10/16 04:38 12/10/16 04:38 Labs: Laboratory Results - last 24 hr 12/10/16 12/10/16 08:33 11:11 POC Glucose 97 H 103 H - ABG Interpretation ABG results: PT/INR, D-dimer PT 20.1 Seconds (9.4-12.1) H 12/09/16 04:43
[2016-12-11 11:34] VITALS: BP 125/76
[2016-12-11] MEDS ORDERED: Morphine Oral CONC 5 MG/0.25 ML ORAL.SYG PO PRN (15:06)
[2016-12-11] MEDS ORDERED: Scopolamine Patch 1.5 MG PATCH.TD72 TD SCH (15:15)
--- NOTE | 2016-12-11 15:56 | Discharge Summary ---
Date of Encounter: 12/11/16 Time of Encounter: 15:54 - Discharge Diagnosis (1) Healthcare-associated pneumonia Priority: Primary Status: Acute (2) Pleural effusion Priority: Secondary Status: Chronic (3) Metastatic cancer Priority: Secondary Status: Chronic (4) Goals of care, counseling/discussion Priority: Secondary Status: Acute - Discharge Medications Prescriptions: levoFLOXacin [Levaquin] 750 mg PO Q48H #7 tab Home Medications: Cholecalciferol (D-3) [Vitamin D] 1,000 unit PO DAILY 10/11/16 [History] Cyanocobalamin (Vitamin B-12) [Vitamin B12] 1,000 mcg PO DAILY 10/11/16 [History ] Fexofenadine HCl 60 mg PO DAILY 10/11/16 [History] Fluticasone/Salmeterol [Advair 500-50 Diskus] 1 puff IH BID 10/11/16 [History] Montelukast [Singulair] 10 mg PO DAILY 10/11/16 [History] Acetaminophen [Tylenol] 650 mg PO Q6HR PRN 12/07/16 [History] Baclofen [Lioresal] 5 mg PO Q8H PRN 12/07/16 [History] Dexamethasone [Decadron] 8 mg PO TID 12/07/16 [History] Docusate [Colace] 100 mg PO BID 12/07/16 [History] Mag Hydrox/Al Hydrox/Simeth [Antacid Suspension] 30 ml PO Q6H PRN 12/07/16 [ History] Naproxen [Naprosyn] 500 mg PO BID 12/07/16 [History] Pantoprazole Sodium [Protonix] 40 mg PO BID 12/07/16 [History] levETIRAcetam [Keppra Oral Soln] 500 mg PO BID 12/07/16 [History] levoFLOXacin [Levaquin] 750 mg PO Q48H #7 tab 12/10/16 [Rx] Allergies/Adverse Reactions: 3 Allergy/AdvReac Type Severity Reaction Status Date / Time venom-honey bee Allergy Swelling Verified 12/07/16 15:49 [bee venom (honey bee)] of the Eye Date of admission: 12/07/16 19:12 Primary [facility] physician: [facility] Consults: 12/07/16 21:54 Consult to Speech Therapy [CONS] Routine Comment: Evaluate, develop and implement POC Reason for Consult: speech and swallowing valuation Call Completed: No 12/09/16 08:29 Consult to Pulmonology [CONS] Routine Consulting Provider: [facility]m [facility] [place] Reason for Consult: RIght pleural effusion- loculated. Time Notified: 08:29 Call Completed: Yes 12/09/16 16:31 Consult to Palliative Care [CONS] Routine Comment: Consulting Provider: Palliative Care [place] Reason for Consult: Metastatic cancer, poor prognosis Call Completed: Yes 12/10/16 14:08 Consult to Physical Therapy [CONS] Stat Comment: Evaluate, develop and implement POC Reason for Consult: EVAL AND TREAT FOR ECF PLACEMENT. 12/10/16 14:09 Consult to Occupational Therapy [CONS] Stat Comment: Evaluate, develop and implement POC Reason for Consult: EVAL AND TREAT. FOR ECF PLACEMENT Discharging clinician: Lana Adam Anticipated date of discharge: 12/11/16 - Patient Status Disposition: Hospice - Medical Facility Condition: Good - Discharge Instructions Instructions: Pneumonia (DC) Follow Up With: DIANA SERRANO [Other] (Patient is going to ECF, no PCP appointment is needed. They are located beside [facility]) Hospital course: Mr. Belle is a 81 year old male - Time Spent with Patient Total time spent providing and/or coordinating discharge services: - Constitutional Vitals: Temp Pulse Resp BP Pulse Ox 98.1 F 100 28 125/76 97 12/11/16 11:32 12/11/16 14:56 12/11/16 11:32 12/11/16 11:32 12/11/16 14:56 General appearance: Present: cooperative, A&O X 2, no acute distress, answers questions appropriately
--- NOTE | 2016-12-11 16:01 | Internal Med Progress Note ---
Date of Encounter: 12/11/16 Time of Encounter: 15:59 - Assessment and plan (1) Healthcare-associated pneumonia Current Visit: Yes Status: Acute (2) Pleural effusion Current Visit: Yes Status: Chronic (3) Metastatic cancer Current Visit: Yes Status: Chronic (4) Goals of care, counseling/discussion Current Visit: Yes Status: Acute - Subjective Interval history: Patient is complaining of nausea. Scopolamine patch prescribed. Detailed discussion with patient and family with guarding treatment plan. Patient is DNR /DNI and wants to go to alf. If using all IV medication and draws no further interventional treatments except for antibiotics. Discharge summary updated. - Constitutional Vitals: Temp Pulse Resp BP Pulse Ox 98.1 F 100 28 125/76 97 12/11/16 11:32 12/11/16 14:56 12/11/16 11:32 12/11/16 11:32 12/11/16 14:56 General appearance: Present: cachectic, cooperative, A&O X 2, no acute distress , answers questions appropriately - Head Head exam: Present: atraumatic, normocephalic - Eye Eye exam: Present: PERRL, conjuntiva pink, sclera anicteric Pupils: Present: PERRL - Neck Neck exam general surgery: Present: supple, trachea midline. Absent: lymphadenopathy - Respiratory Respiratory exam: Present: CTAB. Absent: accessory muscle use, rales, rhonchi, wheezes - Cardiovascular Cardiovascular exam: Present: RRR, +S1, +S2. Absent: diastolic murmur, gallop, rubs, systolic murmur - GI/Abdominal GI/Abdominal exam: Present: normal bowel sounds, soft, no peritoneal signs. Absent: distended, tenderness - Extremities Exam Extremities exam: Present: warm, radial pulses palpable and symmetrical. Absent : calf tenderness, cyanotic, pedal edema - Neurological Exam Neurological exam: Present: CN II-XII intact, oriented X3, no focal deficits. Absent: pronater drift, facial droop, speech deficit - Skin Skin exam: Present: dry, intact Internal Medicine: Result - Labs CBC & Chem 7: 12/10/16 04:38 12/10/16 04:38 - ABG Interpretation ABG results: PT/INR, D-dimer PT 20.1 Seconds (9.4-12.1) H 12/09/16 04:43 Consult Discharge Plan - Plan Instructions: Pneumonia (DC) Referrals: AZ SERRANO [Other] (Patient is going to [facility], no PCP appointment is needed. They are located beside [facility]) Prescriptions: levoFLOXacin [Levaquin] 750 mg PO Q48H #7 tab
== END 2016-12-11 17:20 | disposition hospice, inpatient (51) | DRG 871 ==
LOC: EMEROO 15:28 → 2NNU 19:12
PROVIDERS: ADMIT Nurse Practitioner Family; ATTEND Internal Medicine